=== PATIENT | male | born 1975 | race Native Hawaiian/Other Pacific Islander ===

== ENCOUNTER 2019-10-06 22:21 | Emergency (ER) | payer OTHER ==
[~2019-10-06] VITALS: Ht 182.9 cm; Wt 145.2 kg
[2019-10-06 22:21] VITALS: BP 191/125; TEMP 97.9
[2019-10-06 22:50] LABS: PLATELET COUNT 290 K/uL (142-355)
[2019-10-06 23:18] LABS: PARTIAL THROMBOPLASTIN TIME 24.7 SECONDS (24.5-33.6)
[2019-10-06 23:24] LABS: SODIUM 141 mmol/L (136-145)
== END 2019-10-07 | disposition still patient (30) ==
LOC: ED 22:21
PROVIDERS: Hospitalist
DX: R07.89 Other chest pain (principal); I16.0 Hypertensive urgency; R00.0 Tachycardia, unspecified; F17.210 Nicotine dependence, cigarettes, uncomplicated
CPT/HCPCS: 36415; 80053; 82550; 83880; 84484; 85027; 85379; 85610; 85730; 93005; 96374; 96375; 99284; J2270; J2405

== ENCOUNTER 2021-06-12 08:48 | Emergency (ER) | payer OTHER ==
[~2021-06-12] VITALS: Ht 182.9 cm; Wt 149.7 kg
[2021-06-12 08:53] VITALS: TEMP 98
[2021-06-12 10:59] VITALS: BP 160/78
== END 2021-06-12 10:59 | disposition home or self-care (01) ==
LOC: ED 08:48
DX: S20.211A Contusion of right front wall of thorax, initial encounter (principal); I10 Essential (primary) hypertension; W11.XXXA Fall on and from ladder, initial encounter; Y92.89 Other specified places as the place of occurrence of the external cause
CPT/HCPCS: 96372; 99283; J2175; J2405

== ENCOUNTER 2022-01-03 12:16 | Emergency (ER) | payer OTHER ==
[~2022-01-03] VITALS: Ht 182.9 cm; Wt 149.7 kg
[2022-01-03 14:07] VITALS: BP 202/128; TEMP 98.7
== END 2022-01-03 14:10 | disposition home or self-care (01) ==
LOC: ED 12:16
DX: J06.9 Acute upper respiratory infection, unspecified (principal); Z20.822 Contact with and (suspected) exposure to COVID-19; F17.210 Nicotine dependence, cigarettes, uncomplicated
CPT/HCPCS: 87502; 87635; 87651; 99283; U0003

== ENCOUNTER 2022-06-07 20:00 | Emergency (ER) | payer OTHER ==
[~2022-06-07] VITALS: Ht 182.9 cm; Wt 167.8 kg
[2022-06-07 20:17] VITALS: TEMP 98.2
[2022-06-07 21:05] LABS: PLATELET COUNT 228 K/uL (142-355)
[2022-06-07 21:20] LABS: POTASSIUM 4.1 mmol/L (3.6-5.2)
[2022-06-07 21:24] LABS: PARTIAL THROMBOPLASTIN TIME 22.6 SECONDS (24.5-33.6)
[2022-06-08] VITALS: BP 190/100
== END 2022-06-08 00:15 | disposition left against medical advice (07) ==
LOC: ED 20:00
PROVIDERS: Emergency Medicine
DX: E11.65 Type 2 diabetes mellitus with hyperglycemia (principal); Z79.84 Long term (current) use of oral hypoglycemic drugs; I10 Essential (primary) hypertension; Z53.29 Procedure and treatment not carried out because of patient's decision for other reasons; F17.210 Nicotine dependence, cigarettes, uncomplicated
CPT/HCPCS: 36415; 36600; 80053; 80307; 82805; 83880; 84484; 85027; 85610; 85730; 93005; 96360; 96374; 96375; 99284; J0360; J1815; J2175; J2405